=== PATIENT | female | born 1930 | race African-American/Black ===

== ENCOUNTER 2016-07-08 11:41 | Inpatient (IN) | payer MEDICARE, OTHER ==
--- NOTE | ~2016-07-08 | HP ---
History And Physical [facility] [address] [place]. [address] NAME: EJ MONROE : [birth year] STATUS : ADM IN [facility]#: [id number] AGE: 85 ADM/REG DATE : 07/08/16 MR#: [id number] REPORT SERV DATE: 07/08/16 DICTATED BY: REJI BECK DATE: 07/08/16 REPORT STATUS : Draft TRANSCRIBED BY: MODEduardo DATE: 07/08/16 DATE OF ADMISSION: 07/08/2016 REASON FOR ADMISSION: Altered mental status. Primary care doctor unclear. Goes to the [facility] for her assisted living facility needs. HISTORY OF PRESENT ILLNESS: This is an 85-year-old, female, known resident of [facility], [facility]. Has a known history of hypertension, diabetes, hyperlipidemia, possible dementia, osteoarthritis with pain. The patient comes in with some increased respiratory distress, thought to have had a right middle lobe pneumonia or infiltrate on her chest x-ray. White count is elevated at 15.6. Significant pyuria. The patient does not know what the current year is. Does not always answer my questions appropriately. Denies any unilateral weakness on either side of her body. Denies fevers or chills, nausea or vomiting. Positive diarrhea though. No chest pain. No chest pressure. No shortness of breath, but yet does have a positive cough. The patient is a very poor historian. There is no family at bedside. Apparently, there are two nieces who may be coming in the hospital, very unclear. PAST MEDICAL HISTORY: See above. PAST SURGICAL HISTORY: See above. ALLERGIES: NO KNOWN DRUG ALLERGIES. SOCIAL HISTORY: Lives at [facility]. No current alcohol, drug use, or tobacco use. She is in the past. No children. Primary homemaker in the past. FAMILY HISTORY: Diabetes and hypertension. REVIEW OF SYSTEMS: Done, see HPI. Otherwise, negative. PHYSICAL EXAMINATION: VITAL SIGNS: 140 systolic currently, she is also now from initially 130/77; 99.2 temp; 68 pulse; 16 respirations; 98% on room air. GENERAL: No acute distress. HEENT: PERRLA. No scleral icterus. CARDIOVASCULAR: Regular rate and rhythm. No murmur. RESPIRATORY: Decreased breath sounds bibasilarly. Mild bibasilar crackles. ABDOMEN: Nontender, nondistended. Positive bowel sounds. EXTREMITIES: No edema. No ecchymosis. NEURO: She has GCS of 14. A and O x2/4. History And Physical [address] [address] NAME: EJ MONROE : [birth year] STATUS : ADM IN PAT#: [id number] AGE: 85 ADM/REG DATE : 07/08/16 MR#: [id number] REPORT SERV DATE: 07/08/16 DICTATED BY: RJEI BECK DATE: 07/08/16 REPORT STATUS : Draft TRANSCRIBED BY: MODL DATE: 07/08/16 PSYCH: Unable to assess given neuro status. LABORATORY DATA: She has a white count that is 15.6, hemoglobin 12.2 with 255,000 platelets. 4.7 potassium, 26 bicarb, 1.16 creatinine, 15 BUN, 131 sodium. Urinalysis, positive pyuria. Troponin 0.07. BNP of 136. Chest x-ray, see above. Right middle lobe hazy border. Alveolar infiltration. EKG, has normal sinus rhythm. No ischemic ST-T changes. ASSESSMENT/PLAN: 1. Sepsis with leukocytosis. Tachycardia above 90 due to source pneumonia plus urinary tract infection. 2. Encephalopathy, likely toxic. Possibly on chronic dementia. 3. Debility. 4. Hypertension. 5. Diabetes. PLAN: We will go ahead and admit this patient. Will likely need to go to a facility. Do anticipate more than two midnights at least given as the facility need. Panculture. Levaquin and Flagyl in case she aspirated. Get a Speech and Swallow eval in case she did aspirate due to her dementia. If it is the case, could consider possible endoscopic evaluation after she gets a barium esophagram. We will go ahead and workup for diarrhea as well. See the rest of my orders. All questions were answered. It took well over 60 minutes to do. Reference [employer] and [employer]. WST/MODL Reji Beck DO / [id number] CC: DO Georgiana Rebollar N.P.
--- NOTE | ~2016-07-08 | DS ---
Discharge Summary [facility] [address] [place]. [address] NAME: EJ MONROE : [birth year] STATUS : ADM IN [facility]#: [id number] AGE: 85 ADM/REG DATE : 07/08/16 MR#: [id number] REPORT SERV DATE: 07/11/16 DICTATED BY: REJI BECK DATE: 07/11/16 REPORT STATUS : Draft TRANSCRIBED BY: MODL DATE: 07/11/16 ADMISSION DATE: 07/08/2016 DISCHARGE DATE: 07/11/2016 HOSPITAL COURSE: This is a pleasant 85-year-old female, known history of debility, local snf home at the [facility], history of hypertension, diabetes, hyperlipidemia, dementia, and some mild osteoarthritis. The patient comes in with significant encephalopathy, right middle lobe pneumonia, suspicion for aspiration with severe sepsis due to encephalopathy present on admission. The patient had also complained of a positive productive cough, was found to have positive pyuria, placed on Levaquin and Flagyl. Had speech swallow evaluation for her aspiration and had recommended mechanical, soft consistency diet, chopped meats with gravy, thin liquids. I will do a barium esophagram as a modified study as an outpatient. If it is positive, we will need a GI referral at that time. She will be discharged to a facility at [facility] per PT recommendations. Follow up with PCP in two weeks, schedule modified barium esophagram in four to six weeks for aspiration. We will continue the same diet as here. DISCHARGE MEDICATIONS: Bumex 1 p.o. daily as well as lovastatin 20 p.o. daily, Levaquin 500 p.o. daily for seven days, Flagyl 500 p.o. t.i.d. for seven additional days, Glucotrol 2.5 p.o. daily, Protonix 40 p.o. daily. CONSULTS: None. PROCEDURES: None. The patient is amenable for discharge. DISCHARGE DIAGNOSES: Severe sepsis due to UTI encephalopathy, severity component due to aspiration pneumonia, debility, hyperlipidemia, dementia. The patient has had good response to IV antibiotics as her white count is now normalized from 15.6 to 12.1, to now 6.5. She has some mild CKD 2, baseline is probably about 1.0. All questions were answered. It took well over 30 minutes to do. WST/MODL Reji Beck DO / [id number] CC: DO Georgiana Rebollar N.P.
--- NOTE | ~2016-07-08 | DS ---
Discharge Summary [facility] [address] [place]. [address] NAME: EJ MONROE : [birth year] STATUS : DIS IN PAT#: [id number] AGE: 85 ADM/REG DATE : 07/08/16 MR#: [id number] REPORT SERV DATE: 07/15/16 DICTATED BY: ANUPAMA BLACKBURN DATE: 07/14/16 REPORT STATUS : Draft TRANSCRIBED BY: MODL DATE: 07/14/16 ADMISSION DATE: 07/08/2016 DISCHARGE DATE: 07/14/2016 DISCHARGE DIAGNOSES: Include: 1. Sepsis. 2. Urinary tract infection pyuria with urinary culture, however, only showing diphtheroid- like organisms. 3. Encephalopathy, acute, multifactorial in the setting of history of dementia. 4. Debility. 5. Hyperlipidemia. HISTORY OF PRESENT ILLNESS: This 85-year-old female who was a resident of a local [facility] home presented with altered mental status. Please see initial H and P of Dr. Jerry Dobbins. The patient admitted to the Hospitalist Service for further evaluation and treatment. Please also see his discharge summary as the patient had been scheduled to transfer to [facility] but insurance approval have not been fully obtained. DISCHARGE MEDICATIONS: Heparin 5000 units subcutaneously every 12 hours, level 2 sliding scale insulin NovoLog with meals and at bedtime, Levaquin 750 mg every other day for three more doses, Mevacor 20 mg at supper, Flagyl 500 mg every eight hours for three more days, Prinivil 5 mg daily. CONTINUATION OF HOSPITAL COURSE: The patient made clear clinical improvement being on the antibiotic therapy. Her mental status improved to baseline. She has been placed on aspiration precautions going forward. Physical Therapy recommended rehab; however, she was not approved for [facility], she was approved for [facility] and was discharged to [facility] on 07/14/2016. Antibiotics were changed over to p.o., and the most recent lab work showed a sodium of 139, potassium 4.0, a BUN of 26, creatinine of 0.99. White blood cells of 5.0, hemoglobin 13.6, hematocrit 39.7. Please note, greater than 30 minutes was spent on this discharge for medication adjustments, disposition, and coordination of care. SHAWN/HARPAL Anupama Blackburn NP / [id number] CC: Latia Garcia N.P.
[~2016-07-08 11:41] MED LIST: ALBUTEROL5 INH; GLUCOTROL5 PO; MEVACOR PO; PROAIR HFA INH; T PO; ZESTRIL5 MG PO
[2016-07-08 11:53] LABS: BASOPHILS 0.1 %; BASOPHILS ABSOLUTE 0.01 10/3/uL (0.0-0.16); EOSINOPHILS 0 %; ER CBC TAT 0 Hrs 05 Mins; HEMOGLOBIN 12.2 g/dL (12.0-16.0); IMMATURE GRANULOCYTES 0.5 %; IMMATURE GRANULOCYTES ABSOLUTE 0.08 10/3/uL (0.0-0.11); LYMPHOCYTES 6.6 %; LYMPHOCYTES ABSOLUTE 1.04 10/3/uL (0.67-4.30); MANUAL DIFF NO %; MEAN CORPUS HGB CONC 34.9 g/dL (32.0-36.0); MEAN CORPUSCULAR HEMOGLOB 31.2 pg (26.0-34.0); MEAN CORPUSCULAR VOLUME 89.5 fL (80-100); MEAN PLATELET VOLUME 9.1 fL (9.2-13.0); MONOCYTES 7.4 %; MONOCYTES ABSOLUTE 1.15 10/3/uL (0.21-1.20); NEUTROPHILS 85.4 %; NEUTROPHILS ABSOLUTE 13.36 10/3/uL (2.02-8.40); PLATELET COUNT 255 10/3/uL (150-400); RED CELL COUNT 3.91 10/6/uL (4.0-5.6); WHITE BLOOD CELLS 15.6 10/3/uL (4.5-10.5)
[2016-07-08 11:59] LABS: ASCORBIC ACID (UR NOT ORDER) NEG (NEG); BILIRUBIN, URINE NEGATIVE (NEG); ER URINALYSIS TAT 0 Hrs 11 Mins; KETONE, URINE NEGATIVE (NEG); LEUKOCYTE ESTERASE(NOT OR LARGE (NEG); NITRITE (URINE) NEG (NEG); WBC (NOT ORDERED) (RFLEX) 69 (0-5)
[2016-07-08 12:03] LABS: PARTIAL THROMBO TIME 28.4 SEC (22.5-37.2); PROTIME (NOT ORD) 12.8 SEC (12.0-14.5)
[2016-07-08 12:10] LABS: BUN (BLOOD UREA NITROGEN) 15 MG/DL (6-23); CREATININE 1.16 MG/DL (0.55-1.02); GFR AFRICAN AMERICAN 49 ML/MIN (>=60); GFR NON AFRICAN AMERICAN 42 ML/MIN (>=60); GLUCOSE, SERUM 112 MG/DL (60-99); POTASSIUM, SERUM 4.7 MMOL/L (3.5-5.3); SODIUM, SERUM 131 MMOL/L (135-148)
[2016-07-08 12:11] LABS: CALCIUM, SERUM 8.9 MG/DL (8.5-10.4); CHEST PAIN PROFILE TAT 0 Hrs 23 Mins; CHLORIDE, SERUM 95 MMOL/L (96-112); CO2 (CARBON DIOXIDE) 26 MMOL/L (24-34); TROPONIN I 0.07 NG/ML (<0.05)
[2016-07-08 12:11] LABS: INFLUENZA A SCREEN NEGATIVE (NEGATIVE); INFLUENZA B SCREEN NEGATIVE (NEGATIVE)
[2016-07-08] MEDS ORDERED: PRIN5 PO (14:36)
[2016-07-08] MEDS ORDERED: GLUCOTROL5 PO (14:36)
[2016-07-08] MEDS ORDERED: PROTONIX PO (14:37)
[2016-07-08] MEDS ORDERED: MEVACOR PO (14:37)
[2016-07-08 18:34] LABS: A/G RATIO 0.7 (0.7-1.9); ALBUMIN 3.3 G/DL (3.5-5.0); ALKALINE PHOSPHATASE 150 U/L (45-117); BUN (BLOOD UREA NITROGEN) 13 MG/DL (6-23); CALCIUM, SERUM 8.5 MG/DL (8.5-10.4); CHLORIDE, SERUM 97 MMOL/L (96-112); CO2 (CARBON DIOXIDE) 27 MMOL/L (24-34); CPK 247 U/L (0-200); CREATININE 0.97 MG/DL (0.55-1.02); GFR AFRICAN AMERICAN 61 ML/MIN (>=60); GFR NON AFRICAN AMERICAN 53 ML/MIN (>=60); GLOBULIN 4.5 G/DL (2.5-4.1); GLUCOSE, SERUM 105 MG/DL (60-99); PHOSPHORUS, SERUM 3.7 MG/DL (2.5-4.5); POTASSIUM, SERUM 4.4 MMOL/L (3.5-5.3); SGOT(AST) 24 U/L (5-40); SGPT(ALT) 17 U/L (5-65); SODIUM, SERUM 133 MMOL/L (135-148); TOTAL BILIRUBIN 0.3 MG/DL (0-1.2); TOTAL PROTEIN 7.8 G/DL (6.0-8.5)
[2016-07-08 19:22] LABS: PROCALCITONIN 0.26 ng/mL (<0.5)
[2016-07-08 22:24] LABS: GLYCOHEMOGLOBIN (HbA1c) 5.8 % (4.7-6.1)
[2016-07-08 23:49] LABS: CK-MB 4.1 NG/ML; CPK 297 U/L (0-200); TROPONIN I 0.08 NG/ML (<0.05)
[2016-07-09 03:35] LABS: BASOPHILS 0.2 %; BASOPHILS ABSOLUTE 0.02 10/3/uL (0.0-0.16); EOSINOPHILS 0.5 %; EOSINOPHILS ABSOLUTE 0.06 10/3/uL (0.0-0.53); HEMATOCRIT 36.7 % (36.0-48.0); HEMOGLOBIN 13.2 g/dL (12.0-16.0); IMMATURE GRANULOCYTES 1.7 %; IMMATURE GRANULOCYTES ABSOLUTE 0.21 10/3/uL (0.0-0.11); LYMPHOCYTES 12.7 %; LYMPHOCYTES ABSOLUTE 1.54 10/3/uL (0.67-4.30); MEAN CORPUSCULAR HEMOGLOB 32.2 pg (26.0-34.0); MEAN CORPUSCULAR VOLUME 89.5 fL (80-100); MEAN PLATELET VOLUME 9.9 fL (9.2-13.0); MONOCYTES 6.6 %; NEUTROPHILS 78.3 %; NEUTROPHILS ABSOLUTE 9.49 10/3/uL (2.02-8.40); PLATELET COUNT 197 10/3/uL (150-400); RBC DISTRIBUTION WIDTH 13.2 % (12.0-16.0); WHITE BLOOD CELLS 12.1 10/3/uL (4.5-10.5)
[2016-07-09 03:37] LABS: MANUAL DIFF NO %
[2016-07-09 03:52] LABS: BUN (BLOOD UREA NITROGEN) 13 MG/DL (6-23); CALCIUM, SERUM 8.9 MG/DL (8.5-10.4); CHLORIDE, SERUM 97 MMOL/L (96-112); CO2 (CARBON DIOXIDE) 27 MMOL/L (24-34); CREATININE 1.21 MG/DL (0.55-1.02); GFR AFRICAN AMERICAN 47 ML/MIN (>=60); GFR NON AFRICAN AMERICAN 40 ML/MIN (>=60); GLUCOSE, SERUM 102 MG/DL (60-99); PHOSPHORUS, SERUM 4.3 MG/DL (2.5-4.5); SODIUM, SERUM 133 MMOL/L (135-148)
[2016-07-09 03:53] LABS: POTASSIUM, SERUM 4.6 MMOL/L (3.5-5.3)
[2016-07-09 04:41] LABS: PLATELET ESTIMATE ADQ (ADEQUATE)
[2016-07-09 04:42] LABS: RBC MORPHOLOGY NORM (NORMAL)
[2016-07-10 05:16] LABS: BASOPHILS 0.1 %; BASOPHILS ABSOLUTE 0.01 10/3/uL (0.0-0.16); EOSINOPHILS 0.7 %; EOSINOPHILS ABSOLUTE 0.05 10/3/uL (0.0-0.53); HEMATOCRIT 34.3 % (36.0-48.0); HEMOGLOBIN 12.1 g/dL (12.0-16.0); IMMATURE GRANULOCYTES 0.1 %; IMMATURE GRANULOCYTES ABSOLUTE 0.01 10/3/uL (0.0-0.11); LYMPHOCYTES 18.8 %; LYMPHOCYTES ABSOLUTE 1.42 10/3/uL (0.67-4.30); MEAN CORPUS HGB CONC 35.3 g/dL (32.0-36.0); MEAN CORPUSCULAR HEMOGLOB 31.5 pg (26.0-34.0); MEAN CORPUSCULAR VOLUME 89.3 fL (80-100); MEAN PLATELET VOLUME 9.1 fL (9.2-13.0); MONOCYTES 8.6 %; MONOCYTES ABSOLUTE 0.65 10/3/uL (0.21-1.20); NEUTROPHILS 71.7 %; PLATELET COUNT 234 10/3/uL (150-400); RBC DISTRIBUTION WIDTH 13.3 % (12.0-16.0); RED CELL COUNT 3.84 10/6/uL (4.0-5.6); WHITE BLOOD CELLS 7.5 10/3/uL (4.5-10.5)
[2016-07-10 05:17] LABS: MANUAL DIFF NO %
[2016-07-10 05:31] LABS: CALCIUM, SERUM 8.6 MG/DL (8.5-10.4); CHLORIDE, SERUM 97 MMOL/L (96-112); CO2 (CARBON DIOXIDE) 27 MMOL/L (24-34); CREATININE 1.41 MG/DL (0.55-1.02); GFR AFRICAN AMERICAN 39 ML/MIN (>=60); GFR NON AFRICAN AMERICAN 33 ML/MIN (>=60); GLUCOSE, SERUM 116 MG/DL (60-99); PHOSPHORUS, SERUM 4.8 MG/DL (2.5-4.5); SODIUM, SERUM 137 MMOL/L (135-148)
[2016-07-10 05:34] LABS: BUN (BLOOD UREA NITROGEN) 21 MG/DL (6-23)
[2016-07-11 04:03] LABS: BASOPHILS 0.3 %; BASOPHILS ABSOLUTE 0.02 10/3/uL (0.0-0.16); EOSINOPHILS 0.9 %; EOSINOPHILS ABSOLUTE 0.06 10/3/uL (0.0-0.53); HEMOGLOBIN 13.1 g/dL (12.0-16.0); IMMATURE GRANULOCYTES 0.2 %; IMMATURE GRANULOCYTES ABSOLUTE 0.01 10/3/uL (0.0-0.11); LYMPHOCYTES 27.4 %; LYMPHOCYTES ABSOLUTE 1.77 10/3/uL (0.67-4.30); MEAN CORPUS HGB CONC 33.9 g/dL (32.0-36.0); MEAN CORPUSCULAR HEMOGLOB 31.5 pg (26.0-34.0); MEAN PLATELET VOLUME 9.1 fL (9.2-13.0); MONOCYTES 9.1 %; MONOCYTES ABSOLUTE 0.59 10/3/uL (0.21-1.20); NEUTROPHILS 62.1 %; NEUTROPHILS ABSOLUTE 4.02 10/3/uL (2.02-8.40); PLATELET COUNT 235 10/3/uL (150-400); RBC DISTRIBUTION WIDTH 13.1 % (12.0-16.0); RED CELL COUNT 4.16 10/6/uL (4.0-5.6); WHITE BLOOD CELLS 6.5 10/3/uL (4.5-10.5)
[2016-07-11 04:11] LABS: HEMATOCRIT 38.7 % (36.0-48.0); MANUAL DIFF NO %
[2016-07-11 04:14] LABS: BUN (BLOOD UREA NITROGEN) 24 MG/DL (6-23); CALCIUM, SERUM 8.8 MG/DL (8.5-10.4); CHLORIDE, SERUM 98 MMOL/L (96-112); CO2 (CARBON DIOXIDE) 26 MMOL/L (24-34); CREATININE 1.27 MG/DL (0.55-1.02); GFR AFRICAN AMERICAN 44 ML/MIN (>=60); GFR NON AFRICAN AMERICAN 38 ML/MIN (>=60); GLUCOSE, SERUM 116 MG/DL (60-99); PHOSPHORUS, SERUM 3.9 MG/DL (2.5-4.5); POTASSIUM, SERUM 3.9 MMOL/L (3.5-5.3); SODIUM, SERUM 136 MMOL/L (135-148)
[2016-07-12 05:29] LABS: BASOPHILS 0.4 %; BASOPHILS ABSOLUTE 0.02 10/3/uL (0.0-0.16); HEMATOCRIT 35.6 % (36.0-48.0); HEMOGLOBIN 12.2 g/dL (12.0-16.0); LYMPHOCYTES 29.2 %; LYMPHOCYTES ABSOLUTE 1.48 10/3/uL (0.67-4.30); MEAN CORPUS HGB CONC 34.3 g/dL (32.0-36.0); MEAN CORPUSCULAR HEMOGLOB 30.8 pg (26.0-34.0); MEAN PLATELET VOLUME 9.2 fL (9.2-13.0); MONOCYTES 9.5 %; MONOCYTES ABSOLUTE 0.48 10/3/uL (0.21-1.20); NEUTROPHILS 58.9 %; NEUTROPHILS ABSOLUTE 2.99 10/3/uL (2.02-8.40); PLATELET COUNT 253 10/3/uL (150-400); RBC DISTRIBUTION WIDTH 13.2 % (12.0-16.0); RED CELL COUNT 3.96 10/6/uL (4.0-5.6); WHITE BLOOD CELLS 5.1 10/3/uL (4.5-10.5)
[2016-07-12 05:32] LABS: MANUAL DIFF NO %; MEAN CORPUSCULAR VOLUME 89.9 fL (80-100)
[2016-07-12 05:39] LABS: BUN (BLOOD UREA NITROGEN) 26 MG/DL (6-23); CALCIUM, SERUM 8.6 MG/DL (8.5-10.4); CHLORIDE, SERUM 99 MMOL/L (96-112); CO2 (CARBON DIOXIDE) 27 MMOL/L (24-34); CREATININE 1.11 MG/DL (0.55-1.02); GFR AFRICAN AMERICAN 52 ML/MIN (>=60); GFR NON AFRICAN AMERICAN 45 ML/MIN (>=60); GLUCOSE, SERUM 110 MG/DL (60-99); PHOSPHORUS, SERUM 3.1 MG/DL (2.5-4.5); POTASSIUM, SERUM 3.5 MMOL/L (3.5-5.3); SODIUM, SERUM 137 MMOL/L (135-148)
[2016-07-13 04:53] LABS: BASOPHILS 0.4 %; BASOPHILS ABSOLUTE 0.02 10/3/uL (0.0-0.16); EOSINOPHILS 2.3 %; EOSINOPHILS ABSOLUTE 0.12 10/3/uL (0.0-0.53); HEMATOCRIT 38.9 % (36.0-48.0); HEMOGLOBIN 13.4 g/dL (12.0-16.0); LYMPHOCYTES 31.8 %; LYMPHOCYTES ABSOLUTE 1.68 10/3/uL (0.67-4.30); MEAN CORPUS HGB CONC 34.4 g/dL (32.0-36.0); MEAN CORPUSCULAR HEMOGLOB 31.6 pg (26.0-34.0); MEAN CORPUSCULAR VOLUME 91.7 fL (80-100); MEAN PLATELET VOLUME 8.9 fL (9.2-13.0); MONOCYTES 12.1 %; MONOCYTES ABSOLUTE 0.64 10/3/uL (0.21-1.20); NEUTROPHILS 53.4 %; NEUTROPHILS ABSOLUTE 2.83 10/3/uL (2.02-8.40); PLATELET COUNT 260 10/3/uL (150-400); RBC DISTRIBUTION WIDTH 13.1 % (12.0-16.0); RED CELL COUNT 4.24 10/6/uL (4.0-5.6); WHITE BLOOD CELLS 5.3 10/3/uL (4.5-10.5)
[2016-07-13 04:54] LABS: MANUAL DIFF NO %
[2016-07-13 05:08] LABS: BUN (BLOOD UREA NITROGEN) 25 MG/DL (6-23); CALCIUM, SERUM 9.3 MG/DL (8.5-10.4); CHLORIDE, SERUM 102 MMOL/L (96-112); CO2 (CARBON DIOXIDE) 28 MMOL/L (24-34); CREATININE 1.03 MG/DL (0.55-1.02); GFR AFRICAN AMERICAN 57 ML/MIN (>=60); GFR NON AFRICAN AMERICAN 49 ML/MIN (>=60); GLUCOSE, SERUM 110 MG/DL (60-99); PHOSPHORUS, SERUM 2.8 MG/DL (2.5-4.5); POTASSIUM, SERUM 3.8 MMOL/L (3.5-5.3); SODIUM, SERUM 139 MMOL/L (135-148)
[2016-07-14 04:09] LABS: BASOPHILS 0.4 %; BASOPHILS ABSOLUTE 0.02 10/3/uL (0.0-0.16); EOSINOPHILS 2.4 %; EOSINOPHILS ABSOLUTE 0.12 10/3/uL (0.0-0.53); HEMATOCRIT 39.7 % (36.0-48.0); HEMOGLOBIN 13.6 g/dL (12.0-16.0); IMMATURE GRANULOCYTES 0.2 %; IMMATURE GRANULOCYTES ABSOLUTE 0.01 10/3/uL (0.0-0.11); LYMPHOCYTES 31.6 %; LYMPHOCYTES ABSOLUTE 1.59 10/3/uL (0.67-4.30); MEAN CORPUS HGB CONC 34.3 g/dL (32.0-36.0); MEAN CORPUSCULAR HEMOGLOB 31.3 pg (26.0-34.0); MEAN CORPUSCULAR VOLUME 91.5 fL (80-100); MEAN PLATELET VOLUME 9.1 fL (9.2-13.0); MONOCYTES 8.3 %; MONOCYTES ABSOLUTE 0.42 10/3/uL (0.21-1.20); NEUTROPHILS 57.1 %; NEUTROPHILS ABSOLUTE 2.87 10/3/uL (2.02-8.40); PLATELET COUNT 255 10/3/uL (150-400); RED CELL COUNT 4.34 10/6/uL (4.0-5.6)
[2016-07-14 04:16] LABS: BUN (BLOOD UREA NITROGEN) 26 MG/DL (6-23); CALCIUM, SERUM 8.8 MG/DL (8.5-10.4); CHLORIDE, SERUM 100 MMOL/L (96-112); CO2 (CARBON DIOXIDE) 28 MMOL/L (24-34); CREATININE 0.99 MG/DL (0.55-1.02); GFR AFRICAN AMERICAN 59 ML/MIN (>=60); GFR NON AFRICAN AMERICAN 51 ML/MIN (>=60); GLUCOSE, SERUM 106 MG/DL (60-99); SODIUM, SERUM 139 MMOL/L (135-148)
[2016-07-14 04:18] LABS: MANUAL DIFF NO %
== END 2016-07-14 20:00 | DRG 871 ==
LOC: ER 11:41 → 6NO 16:03
PROVIDERS: Emergency Medicine; Internal Medicine
DX: A41.9 Sepsis, unspecified organism (principal); J69.0 Pneumonitis due to inhalation of food and vomit; G93.41 Metabolic encephalopathy; N39.0 Urinary tract infection, site not specified; I12.9 Hypertensive chronic kidney disease with stage 1 through stage 4 chronic kidney disease, or unspecified chronic kidney disease; E11.22 Type 2 diabetes mellitus with diabetic chronic kidney disease; E78.5 Hyperlipidemia, unspecified; M19.90 Unspecified osteoarthritis, unspecified site; R65.20 Severe sepsis without septic shock; N18.2 Chronic kidney disease, stage 2 (mild); F03.90 Unspecified dementia, unspecified severity, without behavioral disturbance, psychotic disturbance, mood disturbance, and anxiety; Z82.49 Family history of ischemic heart disease and other diseases of the circulatory system; Z83.3 Family history of diabetes mellitus
CPT/HCPCS: 70450; 71010; 80048; 80053; 81001; 82140; 82550; 82553; 82962; 83036; 83605; 83735; 83880; 84100; 84145; 84443; 84484; 85025; 85610; 85730; 87040; 87070; 87086; 87449; 87804; 87880; 92610-GN; 93005; 96374; 96375; 97162-GP; 97530-GP; 99285; A9270-GY; G8978-CK-GP; G8979-CJ-GP; G8996-CJ-GN; G8997-CJ-GN; G8998-CJ-GN; J1170; J1956; J2405